=== PATIENT | male | born 1995 | race Caucasian/White ===

== ENCOUNTER 2017-03-29 15:54 | Emergency (ER) | payer OTHER ==
[~2017-03-29] VITALS: Ht 170.2 cm; Wt 107.1 kg
[~2017-03-29 15:54] MED LIST: IBUPOTC PO; NORC1TAB4 PO; [UNRECOGNIZED DRUG - CODE] PO
[2017-03-29 15:58] VITALS: BP 167/90
[2017-03-29] MEDS ORDERED: ACETAMINOPHEN 325 MG TAB PO ONE (17:15)
[2017-03-29] MEDS ORDERED: ONDANSETRON 4 MG ORAL DISINTEGRATING TAB (S0181) PO ONE (17:15)
--- NOTE | 2017-03-29 18:22 | REP ---
CT BRAIN WITHOUT IV CONTRAST: CT brain is performed without IV contrast. Ventricles are normal in size and position with no midline shift or mass effect. Laguna-white differentiation is well maintained. There is no acute hemorrhage. There is no extra axial fluid collection. No skull fracture is seen. IMPRESSION: Negative noncontrast CT brain. Signed by Saad Laguna MD 03/29/2017 08:04 P
--- NOTE | 2017-03-29 18:23 | REP ---
CT CERVICAL SPINE WITHOUT IV CONTRAST: CT cervical spine was performed in the axial plane with sagittal and coronal reconstruction images. There is no fracture or dislocation. Vertebral bodies are normal in height and are well aligned. There is no prevertebral soft-tissue swelling. Disc spaces are well preserved. IMPRESSION: No evidence of fracture or dislocation. Signed by Saad Laguna MD 03/29/2017 08:04 P
== END 2017-03-29 18:54 | disposition home or self-care (01) ==
LOC: M ED 15:54
DX: R55 Syncope and collapse (principal); S09.90XA Unspecified injury of head, initial encounter; X58.XXXA Exposure to other specified factors, initial encounter; Y92.89 Other specified places as the place of occurrence of the external cause; Y93.89 Activity, other specified; Y99.0 Civilian activity done for income or pay; Z88.0 Allergy status to penicillin; Z88.1 Allergy status to other antibiotic agents